=== PATIENT | male | born 1985 | race African-American/Black ===

== ENCOUNTER → 2017-03-17 | Outpatient (CLI) | payer BC, OTHER ==
[2017-03-17 13:09] LABS: ALBUMIN 4.5 g/dL (3.2-5.5); ALBUMIN/GLOBULIN RATIO 1.3 (1.0-2.2); ALKALINE PHOSPHATASE 34 IU/L (42-121); ALT ALANINE AMINOTRANSFERASE 79 IU/L (10-60); AST ASPARTATE AMINOTRANSFERASE 52 IU/L (10-42); BUN - BLOOD UREA NITROGEN 12 mg/dL (6-20); CALCIUM 9.1 mg/dL (8.5-10.3); CARBON DIOXIDE - CO2 24 mmol/L (21-32); CHLORIDE 103 mmol/L (101-111); CHOL/HDL RATIO 5.5 (<5.0); CHOLESTEROL 142 mg/dL; CREATININE 0.9 mg/dL (0.6-1.2); GFR - MDRD 118 (>89); GLUCOSE 95 mg/dL (70-100); HDL CHOLESTEROL 26 mg/dL; LDL CHOLESTEROL,CALCULATED 95 mg/dL; LDL/HDL RATIO 3.7 (<3.6); SODIUM 136 mmol/L (135-145); TOTAL PROTEIN 8.1 g/dL (6.7-8.2); VLDL CHOLESTEROL 21 mg/dL
[2017-03-17 13:27] LABS: HB2 TOTAL 16.6 g/dL; HEMOGLOBIN A1C 0.68 g/dL; HEMOGLOBIN A1C % 5.9 % (4.6-6.2)
== END ==
LOC: LAB.WCP 08:00
PROVIDERS: ATTEND Family Medicine
DX: E88.81 Metabolic syndrome and other insulin resistance (principal); R74.8 Abnormal levels of other serum enzymes; E78.5 Hyperlipidemia, unspecified
CPT/HCPCS: 36415; 80053; 80061; 83036; 83721

== ENCOUNTER 2019-06-05 01:10 | Emergency (ER) | payer BC ==
[2019-06-05 01:20] VITALS: BP 169/103
--- NOTE | 2019-06-05 01:47 | ED Physician Documentation ---
History of Present Illness - Stated complaint Stated Complaint: MALE /BLEEDING - Chief complaint Chief Complaint: Wound - Additonal information Additional information: This is a 33-year-old male who presents with some bleeding from his scrotum. Patient states that he thinks he scratched at his scrotum during the night, and he woke up with some bleeding from the scrotum. He put a bandage over it but it slowly kept oozing, so he had his brother drive him here to the emergency department. Once he was here he changed out of his pants he noticed that the bleeding had stopped. He denies any pain whatsoever. He is not on blood thinne rs, denies any history of coagulopathy. He feels fine at this time. No dysuria. Review of Systems Constitutional: denies: Fever : denies: Dysuria Skin: reports: Abrasion (s) Endocrine: denies: Easy bruising / bleeding PD PAST MEDICAL HISTORY - Past Surgical History Past Surgical History: No - Present Medications Home Medications: Ambulatory Orders Medication Instructions Recorded Confirmed Sulfamethoxazole/Trimethoprim 1 each PO BID #14 tablet 06/05/14 [Bactrim Ds Tablet] cephALEXin [Keflex] 500 mg PO Q6H #28 capsule 06/05/14 - Allergies Allergies/Adverse Reactions: Allergies Allergy/AdvReac Type Severity Reaction Status Date / Time clindamycin Allergy Hives Verified 06/05/14 20:05 - Social History Does the pt smoke?: No Smoking Status: Never smoker Does the pt drink ETOH?: No Does the pt have substance abuse?: No PD ED PE NORMAL - Vitals Vital signs reviewed: Yes - General General: Alert and oriented X 3, No acute distress - HEENT HEENT: PERRL - Cardiac Cardiac: Other (Regular rate and rhythm on my examination) - Respiratory Respiratory: No respiratory distress - Abdomen Abdomen: Soft, Other (Rotund) - Male Male : Other (Normal-appearing external genitalia. Over the scrotum there is a centimeter area of superficial abrasion, no laceration or deeper tissue damage. There is a small amount of crusted blood in one area, no active bleeding. Remainder of the scrotum is normal in appearance.) - Derm Derm: Warm and dry - Extremities Extremities: No deformity - Neuro Neuro: Alert and oriented X 3 - Psych Psych: Normal mood, Normal affect Results - Vitals Vitals: Vital Signs - 24 hr 06/05/19 01:15 Temperature 36.5 C Heart Rate 106 H Respiratory 18 Rate Blood Pressure 169/103 H O2 Saturation 99 Oxygen O2 Source Room air PD MEDICAL DECISION MAKING - ED course ED course: Patient presents with some bleeding from the scrotum area where he scratched. T here is a very mild superficial excoriation in this area with no active bleeding. He is not on any blood thinners and has no signs of coagulopathy. He feels fine at this time and the bleeding is stopped and he appears appropriate for discharge. I reviewed supportive care with some antibiotic ointment and nonstick bandages, also reviewed return precautions with him. Patient agrees with the plan and he was discharged home in good condition Departure - Departure Disposition: 01 Home, Self Care Clinical Impression: Excoriation Condition: Good Instructions: ED Abrasion Comments: You had some bleeding of your scrotum from what appeared to be some scratching of the skin. As we discussed, Keep a thin layer of antibiotic ointment over the area which is irritated, you can put a nonstick bandage over this area as well to protect it. If you are having recurrent bleeding, hold pressure on the area for 10 minutes. If you are still having bleeding after that return to the emergency department. Try to avoid scratching out of picking at the area
[2019-06-05] MEDS ORDERED: BACITRACIN ZINC OINT 1 PACKET TOP STA (02:35)
== END 2019-06-05 02:42 | disposition home or self-care (01) ==
LOC: ED 01:10
DX: S30.813A Abrasion of scrotum and testes, initial encounter (principal); X58.XXXA Exposure to other specified factors, initial encounter; Y93.84 Activity, sleeping
CPT/HCPCS: 99282; 99284; A9270